=== PATIENT | male | born 1980 | race Caucasian/White ===

== ENCOUNTER → 2022-11-15 | Outpatient (CLI) | payer BC, SELFPAY ==
--- NOTE | 2022-11-15 15:11 | RAD_ITS ---
INDICATION: BACK PAIN EXAMINATION/TECHNIQUE: X-RAY - XR Spine Lumbar Min 4 Views COMPARISON: FINDINGS: The vertebral bodies are normal in height. No definite fracture demonstrated. No subluxation. No paravertebral soft tissue mass identified. RAD/L/S Spine Min 4 Views IMPRESSION: No evidence of fracture or subluxation. Electronically Signed: Anu Garza MD at 7:02 EDT ,
== END | disposition home or self-care (01) ==
LOC: MTRAD 15:08
PROVIDERS: PCP Family Medicine; Referring Provider Family Medicine; Visit Provider Family Medicine
DX: M54.50 Low back pain, unspecified (principal); G89.29 Other chronic pain
CPT/HCPCS: 72110

== ENCOUNTER → 2022-11-17 | Outpatient (CLI) | payer BC, SELFPAY ==
[2022-11-17 10:04] LABS: Absolute Lymphocyte Count 2.86 X10^3/uL (0.83-4.51); Absolute Neutrophil Count 4.3 X10^3/uL (2.0-7.7); Basophil# 0.03 X10^3/uL; Basophil% 0.4 % (0-1); Eosinophil# 0.24 X10^3/uL; Hematocrit 45.8 % (40-54); Hemoglobin 16.2 g/dL (13.0-16.5); Lymphocyte # 2.86 X10^3/ul (0.83-4.51); Lymphocyte % 36.1 % (19-41); Mean Corp Hgb Conc 35.4 g/dL (32-36); Mean Corpuscular Hgb 30.9 pg (27.0-32.0); Mean Corpuscular Volume 87.4 fL (80-94); Mean Platelet Vol. 9.1 fl (6.2-12.0); Monocyte# 0.49 X10^3/uL; Monocyte% 6.2 % (0-10); NRBC Flagged by Analyzer 0 % (0-5); Neutrophil # 4.27 X10^3/uL (2.7-7.7); Neutrophil % 53.9 % (47-70); Platelet Count 340 K/mm3 (150-450); RBC Distribution Width CV 11.7 % (11.6-14.6); RBC Distribution Width SD 37.3 fl (35.1-43.9); Red Blood Count 5.24 M/mm3 (4.6-6.2); White Blood Count 7.9 K/mm3 (4.4-11.0)
[2022-11-17 10:32] LABS: ALB/GLOB Ratio 0.9 RATIO (0.9-2.4); AST(SGOT) 33 U/L (15-37); Alanine Aminotransfer ALT/SGPT 67 U/L (16-61); Albumin, Serum 3.7 g/dL (3.2-5.0); Alkaline Phosphatase 110 U/L (45-117); Anion Gap 9 (5-15); BUN 14 mg/dL (7-18); BUN/Creat Ratio 11.9 RATIO (10-20); Calcium,Total 8.8 mg/dL (8.5-10.1); Chloride 103 mmol/L (98-107); Cholesterol 209 mg/dL (200); Creatinine, Serum 1.18 mg/dL (0.70-1.30); EST Glomerular Filtration Rate 71 mL/min (>60); Est Glom Filt Rate - Afr Amer 86 mL/min (>60); Globulin 4.2 g/dL (2.2-4.2); Glucose 144 mg/dL (74-106); High Density Lipoprotein 48 mg/dL; Potassium 3.8 mmol/L (3.5-5.1); Protein, Total 7.9 g/dL (6.4-8.2); Sodium Level 138 mmol/L (136-145); Triglycerides 317 mg/dL; Very Low Density Lipoprotein 63 mg/dL (5-40)
[2022-11-25 00:07] LABS: Testosterone Free 12.2 pg/mL (6.8-21.5)
== END | disposition home or self-care (01) ==
LOC: MTLAB 08:34
PROVIDERS: PCP Family Medicine; Visit Provider Family Medicine
DX: R53.83 Other fatigue (principal); I10 Essential (primary) hypertension
CPT/HCPCS: 36415; 80053; 80061; 84402; 85025

== ENCOUNTER 2023-05-05 14:11 | Inpatient (IN) | payer BC, SELFPAY ==
[2023-05-05] VITALS (11 sets, daily range): BP systolic 121–173; BP diastolic 71–114; PULSE 75–122; RESP 14–20; TEMP 36.6–37; O2SAT 97–98; BMI 34.7
[2023-05-05 14:36] LABS: Bedside Glucose 355 mg/dL (74-106)
--- NOTE | 2023-05-05 14:45 | ED.RN ---
NO OLD EKG
[2023-05-05 14:49] LABS: Absolute Lymphocyte Count 3.08 X10^3/uL (0.83-4.51); Absolute Neutrophil Count 5.9 X10^3/uL (2.0-7.7); Basophil# 0.05 X10^3/uL; Basophil% 0.5 % (0-1); Eosinophil# 0.05 X10^3/uL; Eosinophils% 0.5 % (0-5); Hematocrit 50.8 % (40-54); Lymphocyte # 3.08 X10^3/ul (0.83-4.51); Lymphocyte % 31.5 % (19-41); Mean Corp Hgb Conc 35.6 g/dL (32-36); Mean Corpuscular Hgb 30.5 pg (27.0-32.0); Mean Corpuscular Volume 85.5 fL (80-94); Mean Platelet Vol. 9.5 fl (6.2-12.0); Monocyte# 0.67 X10^3/uL; Monocyte% 6.9 % (0-10); NRBC Flagged by Analyzer 0 % (0-5); Neutrophil # 5.87 X10^3/uL (2.7-7.7); Neutrophil % 60.1 % (47-70); Platelet Count 370 K/mm3 (150-450); RBC Distribution Width CV 11.8 % (11.6-14.6); RBC Distribution Width SD 36.8 fl (35.1-43.9); Red Blood Count 5.94 M/mm3 (4.6-6.2); White Blood Count 9.8 K/mm3 (4.4-11.0)
--- NOTE | 2023-05-05 14:51 | EX.ED.GENINJ ---
HPI History of Present Illness Chief Complaint: Weakness [facility] Medical History (Updated 05/05/23 @ 18:19 by Tiffanie Walker) Anxiety CPAP (continuous positive airway pressure) dependence Hypertension Sleep apnea Allergy/AdvReac Type Severity Reaction Status Date / Time No Known Allergies Allergy Verified 05/05/23 14:41 Surgical History (Updated 05/05/23 @ 18:19 by Tiffanie Walker) History of appendectomy Social History Smoking Status: Light Smoker (<10/day) EXAM Physical Exam Const Vital Signs: 05/05/23 14:12 05/05/23 14:47 05/05/23 16:34 Temperature 98.6 F Temperature Source Temporal Pulse Rate 122 H 86 Respiratory Rate 20 H 16 Respiratory Effort Normal Respiratory Pattern Normal Blood Pressure 142/114 H 144/76 H Blood Pressure Mean 123 98 Pulse Ox 97 98 Oxygen Delivery Method Room Air Room Air MDM MDM MDM Narrative Medical decision making narrative: HISTORY OF PRESENT ILLNESS: 42-year-old male presents with nausea vomiting weakness and extreme thirst. He denies history of diabetes but states he had the symptoms for the last week. States he cannot shake it. States he has low energy has fatigue. Notes he has been excessively thirsty and urinating more than usual. Notes abdominal discomfort nausea and vomiting. Notes he vomited blood 2 days ago. REVIEW OF SYSTEMS: Pertinent positives: Nausea, vomiting, weakness Pertinent negatives: Focal weakness, chest pain, shortness of breath, leg swelling PHYSICAL EXAM: Nursing triage notes reviewed, Vital signs reviewed Constitutional: please see mdm HENT: MMM Eyes: Pupils equal round and reactive to light, Extraocular muscles intact Neck: No stridor, no JVD, full neck ROM Lungs: Clear to auscultation, No wheezing or rales. No increased work of breathing, no conversational dyspnea, no accessory muscle use, no nasal flaring. No respiratory distress noted Heart: Regular rate and rhythm, No murmurs, No rubs and No gallops, 2+ distal pulses (radial, femoral, posterior tibial) in all extremities Abdomen: Soft, there is no tenderness, rigidity, rebound or guarding, no obvious peritoneal signs, no palpable pulsatile abdominal masses, no auscultated abdominal bruit : No CVAT Extremities: No edema Neuro: No focal neurological deficits, cranial nerves II through XII intact, 5/5 strength in all extremities. Intact sensation to light touch in all extremities, 2+ reflexes bilateral patella tendons. Normal gait. No ataxia. Skin: No rash or lesions noted MEDICAL DECISION MAKING: Chief Complaint: Nausea, vomiting, weakness External records reviewed: No recent ED visits MDM Narrative: Patient was initially tachycardic, tachypneic, otherwise afebrile and nontoxic-appearing I considered the following differential diagnosis: New onset diabetes, dehydration, hyperglycemia causing nausea vomiting, DKA I initially resuscitated the patient 1 L normal saline, Zofran for symptomatic relief. I obtained a broad lab and imaging workup to further elucidate the etiology of the patient's complaints. ALL IMAGES (IF OBTAINED) HAVE BEEN PERSONALLY REVIEWED AND INTERPRETED BY MYSELF. EKG with normal sinus rhythm, left axis deviation, normal intervals, no STEMI VBG with evidence of DKA with metabolic acidosis bicarb 10.4, pH 7.2 High-sensitivity troponin is negative, no evidence of myocardial ischemia Hemoglobin A1c consistent with new onset diabetes Lipase elevated Urine with ketonuria Large acetone consistent with ketoacidosis The synthesis of the patient's history, physical exam, labs images suggest DKA. He started on insulin drip, glucose obstructive, BMP checked every 2 hours. He was admitted to the ICU for further DKA care. Discussed with Dr. Sanches. The patient and/or family, caregivers express understanding. The patient and/or family, caregivers agrees with the plan. Shared decision making: I will have a discussion with the patient and or visitors regarding risk/benefits of further testing or admission. They will be made aware of of the risk/benefits inherent in this decision they will be given the opportunity to voice understanding. Total critical care time today provided was at least 0 minutes. This excludes separately billable procedures. Critical care time (if documented) is secondary to the patient having high probability of clinically significant/life threatening deterioration in the patient's condition which required my urgent intervention. Impression: 1. DKA 2. Hyperglycemia 3. Dehydration 4. Tachycardia Dispo: admit to ICU This note was generated with [employer] dictation software. It may contain incorrect words, spelling, and punctuation that were not noted in review of the chart prior to signing. Lab Data Labs: Laboratory Results - last 24 hr 05/05/23 05/05/23 05/05/23 10:14 14:02 14:16 WBC RBC Hgb Hct MCV MCH MCHC RDW Std Deviation RDW Coeff of [place] Plt Count MPV Immature Gran % (Auto) Neut % (Auto) Lymph % (Auto) [place] % (Auto) Eos % (Auto) Baso % (Auto) Absolute Neuts (auto) Absolute Lymphs (auto) Nucleated RBC % Diff Path Review Sodium Potassium Chloride Carbon Dioxide Anion Gap BUN Creatinine Estim Creat Clear Calc Est GFR (MDRD) Af Amer Est GFR (MDRD) Non-Af BUN/Creatinine Ratio Glucose Hemoglobin A1c Calcium Magnesium Total Bilirubin AST ALT Alkaline Phosphatase Troponin I High Sens Total Protein Albumin Globulin Albumin/Globulin Ratio Lipase Urine Color Yellow Urine Clarity Clear Urine pH 5.0 Ur Specific [place] 1.025 Urine Protein 30 H Urine Glucose (UA) 1000 H Urine Ketones 150 A* Urine Occult Blood 10 H Urine Nitrite Negative Urine Bilirubin Negative Urine Urobilinogen Normal Ur Leukocyte Esterase Negative Urine RBC 0 SEEN Urine WBC 0 SEEN Ur Squamous Epith Cells 0 SEEN Urine Bacteria 0 SEEN Urine Mucus 0 SEEN Urine Osmolality Urine Opiates Screen Urine Methadone Screen Ur Barbiturates Screen Ur Phencyclidine Scrn Ur Amphetamines Screen MDMA (Ecstasy) Screen U Benzodiazepines Scrn Urine Cocaine Screen U Cannabinoids Screen Ur Drug Screen Comment Ethyl Alcohol < 3.0 Acetone Level POC Glucose 355 H 05/05/23 05/05/23 14:33 16:02 WBC 9.8 RBC 5.94 Hgb 18.1 H* Hct 50.8 MCV 85.5 MCH 30.5 MCHC 35.6 RDW Std Deviation 36.8 RDW Coeff of [place] 11.8 Plt Count 370 MPV 9.5 Immature Gran % (Auto) 0.500 Neut % (Auto) 60.1 Lymph % (Auto) 31.5 [place] % (Auto) 6.9 Eos % (Auto) 0.5 Baso % (Auto) 0.5 Absolute Neuts (auto) 5.9 Absolute Lymphs (auto) 3.08 Nucleated RBC % 0 Diff Path Review May foll Sodium 129 L Potassium 3.9 Chloride 99 Carbon Dioxide 13.0 L Anion Gap 17 H BUN 15 Creatinine 1.56 H Estim Creat Clear Calc 70.48 Est GFR (MDRD) Af Amer 62 Est GFR (MDRD) Non-Af 51 L BUN/Creatinine Ratio 9.6 L Glucose 374 H Hemoglobin A1c 8.9 H Calcium 9.0 Magnesium 2.2 Total Bilirubin 1.00 AST 50 H ALT 115 H Alkaline Phosphatase 176 H Troponin I High Sens 7 Total Protein 8.7 H Albumin 3.9 Globulin 4.8 H Albumin/Globulin Ratio 0.8 L Lipase 79 H Urine Color Urine Clarity Urine pH Ur Specific [place] Urine Protein Urine Glucose (UA) Urine Ketones Urine Occult Blood Urine Nitrite Urine Bilirubin Urine Urobilinogen Ur Leukocyte Esterase Urine RBC Urine WBC Ur Squamous Epith Cells Urine Bacteria Urine Mucus Urine Osmolality 775 Urine Opiates Screen NEGATIVE Urine Methadone Screen NEGATIVE Ur Barbiturates Screen NEGATIVE Ur Phencyclidine Scrn NEGATIVE Ur Amphetamines Screen NEGATIVE MDMA (Ecstasy) Screen NEGATIVE U Benzodiazepines Scrn NEGATIVE Urine Cocaine Screen NEGATIVE U Cannabinoids Screen POSITIVE H Ur Drug Screen Comment Ethyl Alcohol Acetone Level LARGE H POC Glucose ABG Data ABG results: ABG 05/05/23 15:01 Specimen Type MINNA Sample Site Not entered VBG pH 7.20 L VBG pO2 63 H VBG HCO3 10 L VBG Total CO2 11 L VBG O2 Sat (Calc) 87 H VBG Base Excess -18 L POC Mix VBG pCO2 Pt Tmp 26.4 L O2 Delivery Device Not entered Crit Call To/Read Back Yes Blood Gas Notified Whom ta Blood Gas Notified Time 15:03:18 Discharge Plan Disposition Disposition: Acute Care Hospital [facility] Discharge Date/Time: 05/05/23 18:22
[2023-05-05 14:55] LABS: Hemoglobin 18.1 g/dL (13.0-16.5)
[2023-05-05 15:06] LABS: Blood Gas Specimen Type VEN; O2 Delivery Device Not entered; SITE Not entered; Time Given 15:03:18; VBG BASE EXCESS -18 mmol/L (-1.0-3.5); VBG Bicarbonate 10 mmol/L (22-26); VBG PO2 63 mmHg (25-40); VBG SO2 87 % (50-70); VBG TCO2 11 mmol/L (23-33); VBG pCO2 26.4 mmHg (41-51)
[2023-05-05] MEDS: Ondansetron 4 MG/2 ML Vial IV (15:16)
[2023-05-05] MEDS: 0.9% Normal Saline (1000mL) 1,000 ML 999 ML IV (15:16)
--- OUTSIDE RECORDS SUMMARY | 2023-05-05 15:18 | XMS RPT_ITS | CCD ---
Author Name Unknown Address [address] [place] [address] Organization [facility] Care Team Providers Care Pediatric Neurologist Name Role Phone UNKNOWN, PROVIDER Unavailable Unavailable SYED, SANJIT S Unavailable Unavailable CHANDURKAR, JOSE ANTONIO Unavailable Unavailable CHANDURKAR, JOSE ANTONIO S Unavailable Unavailable SISCU, HARALAMBIE Unavailable Unavailable SISCU, HARALAMBIE Unavailable Unavailable [facility] M.D. Attending Unavaila ble SYED, LEONCIO DICK Primary Care Unavailable SYED JEAN BAPTISTE, JEFFY Attending Unavaila ble SYED, SARPREET Primary Care Unavailable SYEDRA JEAN BAPTISTE, JEFFY Attending Unavaila ble SYED, SARPREET Primary Care Unavailable SYEDRA JEAN BAPTISTE, JEFFY Attending Unavaila ble SYED, SARPREET Primary Care Unavailable SYEDRA JEAN BAPTISTE, JEFFY Attending Unavaila ble SYED, SARPREET Primary Care Unavailable SYED ITA, JEFFY Attending Unavaila ble SYED, SARPREET Primary Care Unavailable SYED, SARPREET Primary Care Unavailable SYED, SARPREET Primary Care Unavailable SYED, SARPREET Primary Care Unavailable SYEDRA JEAN BAPTISTE, JEFFY Attending Unavaila ble SYED, SARPREET Primary Care Unavailable SYED, SARPREET Primary Care Unavailable SYED, SARPREET Primary Care Unavailable SYED, SARPREET Primary Care Unavailable SYED, SARPREET Primary Care Unavailable SYED, SARPREET Primary Care Unavailable SYED ITA, ROSE MARIEPRECATHERINE Attending Unavaila ble SYED, SARPREET Primary Care Unavailable SYED ITA, ROSE MARIEPRECATHERINE Attending Unavaila ble Problems Active Problems Problem Classification Problem Date Documented Date Episodic/Chronic Alcohol-related disorders (1 source) Alcohol use, unspecified with intoxication, uncomplicated; Translations: [Alcohol use, unspecified with intoxication, uncomplicated] Onset: 10-04-2017 Episodic Anxiety disorders (1 source) Anxiety disorder, unspecified; Translations: [Anxiety disorder, unspecified] Onset: 01-24-2017 Chronic Essential hypertension (1 source) Essential hypertension Onset: 06-07-2017 Nonspecific chest pain (2 sources) Other chest pain; Translations: [Chest pain, unspecified] Onset: 06-07-2017 Episodic Unclassified (2 sources) Other chest pain / R07.89(ICD-9) Onset: 06-07-2017 Unclassified (1 source) Pure hypercholesterolemia , unspecified / E78.00(ICD-9) Onset: 06-07-2017 Unclassified (1 source) Palpitations / R00.2(ICD-9) Onset: 06-07-2017 Unclassified (1 source) Nicotine dependence, unspecified, uncomplicated / F17.200(ICD-9) Onset: 06-07-2017 Unclassified (1 source) Unknown / UNK(Unknown) Onset: 10-04-2017 Past or Other Problems Problem Classification Problem Date Documented Date Episodic/Chronic Unclassified (1 source) Encounter for screening for lipoid disorders; Translations: [Encounter for screening for lipoid disorders] Onset: 01-24-2017 Episodic Unclassified (1 source) Alcohol use, unspecified with intoxication, uncomplicated Onset: 10-04-2017 Results Test Name Value Interpretation Reference Range Facil ity Encounters Encounter Date Encounter Type Care Provider Facility Start: 09-26-2022 ambulatory SARPREET SYED Facilit y:[facility] Start: 09-16-2022 ambulatory SARSYDNEY JEAN BAPTISTE Facility:[facility] Start: 09-15-2022 End: 09-15-2022 ambulatory JEFFY JEAN BAPTISTE Facility:[facility] Start: 09-12-2022 End: 09-12-2022 ambulatory JEFFY JEAN BAPTISTE Facility:[facility] Start: 08-22-2022 End: 08-22-2022 ambulatory JEFFY JEAN BAPTISTE Facility:[facility] Start: 08-16-2022 ambulatory SARPREET SYED Facilit y:[facility] Start: 08-15-2022 ambulatory SARPREET SYED Facilit y:[facility] Start: 07-09-2022 End: 07-09-2022 Emergency department patient visit [facility] [facility] M.D. Facility:[facility] Start: 05-21-2022 End: 02-11-2023 ambulatory JEFFY JEAN BAPTISTE Facility:[facility] Start: 04-20-2022 ambulatory SARPREET SYED Facilit y:[facility] Start: 01-17-2022 ambulatory SARPREET SYED Facilit y:[facility] Start: 01-13-2022 End: 01-14-2022 ambulatory JEFFY LYNCH GUERLINE Facility:[id number] Start: 01-13-2022 ambulatory SARPREET SYED Facilit y:[facility] Start: 12-15-2021 ambulatory SARPREET SYED Facilit y:[facility] Start: 11-15-2021 ambulatory SARPREET SYED Facilit y:[facility] Start: 10-04-2017 End: 10-04-2017 Emergency department patient visit JOSE ANTONIO DASH Facility:[facility] Start: 06-07-2017 Ambulatory PROVIDER UNKNOWN Facili ty:[id number] Start: 01-24-2017 End: 01-24-2017 [facility]: 01-10-2017 End: 01-11-2017 [facility] Procedures Date Procedure Procedure Detail Performing Clinician Start: 07-26-2018 Follow-up visit Payers Date Payer Category Payer Unknown [id number] 2008 Private Health Insurance 2008 Self-pay 2008 Unknown [id number] 1978 Unknown [id number] 2.16.8 [id number] 1978 Unknown [id number] 2.16.8 [id number] 1978 Unknown [id number] 2.16.8 [id number] 1978 Unknown [id number] 2.16.8 [id number] 1978 Unknown [id number] 2.16.8 [id number] 1978 Unknown [id number] 2.16.8 [id number] 1978 Unknown [id number] 2.16.8 [id number] 1978 Unknown [id number] 2.16.8 [id number] 1978 Unknown [id number] 2.16.8 [id number] 1978 Unknown [id number] 2.16.8 [id number] 1978 Unknown [id number] 2.16.8 [id number] 1978 Unknown [id number] 2.16.8 [id number] 1978 Unknown [id number] 2.16.8 [id number] 1978 Unknown [id number] 2.16.8 [id number] 1978 Unknown [id number] 2.16.8 [id number] Private Health Insurance [id number] Progress note 07-09-2022 Note Date & Type Note Facility 07-09-2022 Note HNO ID: [id number] Author: RT Genie(Vincent) Service: Radiology Author Type: Technologist Type: Progress Notes Filed: 07/09/2022 9:10 AM Note Text: Radiology Service Progress Note PATIENT NAME: Benja Guzman DATE OF SERVICE: July 09, 2022 TIME: 9:10 AM PATIENT IDENTITY VERIFICATION COMPLETED USING TWO (2) IDENTIFIERS: Name and Date of confirmed by patient verbally. FALL SCREENING: Has the patient had 2 falls in the last year or 1 fall with injury or currently using an Ambulatory Assistive Device (Walker, Cane, Wheelchair, Crutches, etc.)? Emergency Room Patient: Screened in ED PATIENT GENDER DATA: Male PATIENT RELEVANT IMPLANT DATA REVIEWED: Not Applicable RADIOLOGY DEPARTMENT: General X-ray: Exam(s) Completed: Chest X-Ray PERIPHERAL IV DATA: Not applicable SIGNED BY: RT Genie(R) July 09, 2022 9:10 AM [facility] Summary Purpose Family History No Family History Records FoundNo Family History Records FoundNo Family History Records FoundNo Family History Records FoundNo Family History Records FoundNo Family History Records FoundNo Family History Records FoundNo Family History Records FoundNo Family History Records FoundNo Family History Records Found Advance Directives No Advanced Directives Records FoundNo Advanced Directives Records FoundNo Advanced Directives Records FoundNo Advanced Directives Records FoundNo Advanced Directives Records FoundNo Advanced Directives Records FoundNo Advanced Directives Records FoundNo Advanced Directives Records FoundNo Advanced Directives Records FoundNo Advanced Directives Records Found Additional Source Comments (unrecognized sect ion and content) No Status Records FoundNo Status Records FoundNo Status Records FoundNo Status Records FoundNo Status Records FoundNo Status Records FoundNo Status Records FoundNo Status Records FoundNo Status Records FoundNo Status Records Found INFORMATION SOURCE (unrecogn ized section and content) DATE CREATED AUTHOR AUTHOR'S ORGANIZ ATION 10/04/2017 [facility] DATE CREATED AUTHOR AUTHOR'S ORGANIZ ATION 10/04/2017 [facility] DATE CREATED AUTHOR AUTHOR'S ORGANIZ ATION 11/21/2017 [facility] DATE CREATED AUTHOR AUTHOR'S ORGANIZ ATION 07/27/2018 [employer] DATE CREATED AUTHOR AUTHOR'S ORGANIZ ATION 01/16/2020 [facility] DATE CREATED AUTHOR AUTHOR'S ORGANIZ ATION 2020 [facility] DATE CREATED AUTHOR AUTHOR'S ORGANIZ ATION 07/13/2022 [facility] DATE CREATED AUTHOR AUTHOR'S ORGANIZ ATION 09/26/2022 [facility] DATE CREATED AUTHOR AUTHOR'S ORGANIZ ATION 09/28/2022 [facility] FOR RECORDS PERTAINING TO PATIENTS WHO ARE OR HAVE BEEN ENROLLED IN A CHEMICAL DEPENDENCY/SUBSTANCEABUSE PROGRAM, SOME INFORMATION MAY BE OMITTED. This clinical summary was aggregated from multiple sources. Caution should be exercised in using it in the provision of clinical care. This summary normalizes information from multiple sources, and as a consequence, information in this document may materially change the coding, format and clinical context of patient data. In addition, data may be omitted in some cases. CLINICAL DECISIONS SHOULD BE BASED ON THE PRIMARY CLINICAL RECORDS. [employer] [facility]. provides no warranty or guarantee of the accuracy or completeness of information in this document.
[2023-05-05] MEDS: Lactated Ringers 1,000 ML 999 ML IV (15:35)
[2023-05-05 16:05] LABS: Bacteria 0 SEEN /hpf (None Seen); Mucous, Urine 0 SEEN /hpf (<or=2+); Red Blood Cells-Urine 0 SEEN /hpf (0-5); Squamous Epithelial Cells - UA 0 SEEN /hpf (0-5); White Blood Cells 0 SEEN /hpf (0-5)
[2023-05-05 16:09] LABS: Color, Urine Yellow (Yellow); Glucose, Dipstick 1000 mg/dl (Normal); Leukocyte Esterase-Dipstick Negative /ul (Negative); Nitrite-Dipstick Negative (Negative); Occult Blood-Urine 10 /ul (Negative); Protein-Dipstick 30 mg/dl (Negative); Specific Gravity, Urine 1.025 (1.002-1.030); Urine Bilirubin Dipstick Negative (Negative); Urine Clarity Clear (Clear); Urine Urobilinogen Normal (Normal)
[2023-05-05 16:11] LABS: Hemoglobin A1c 8.9 % (3.8-5.6)
[2023-05-05 16:24] LABS: ALB/GLOB Ratio 0.8 RATIO (0.9-2.4); AST(SGOT) 50 U/L (15-37); Alanine Aminotransfer ALT/SGPT 115 U/L (16-61); Albumin, Serum 3.9 g/dL (3.2-5.0); Alkaline Phosphatase 176 U/L (45-117); Anion Gap 17 (5-15); BUN 15 mg/dL (7-18); BUN/Creat Ratio 9.6 RATIO (10-20); Chloride 99 mmol/L (98-107); Creatinine, Serum 1.56 mg/dL (0.70-1.30); EST Glomerular Filtration Rate 51 mL/min (>60); Est Glom Filt Rate - Afr Amer 62 mL/min (>60); Estimated Creatinine Clearance 70.48 ml/min; Globulin 4.8 g/dL (2.2-4.2); Glucose 374 mg/dL (74-106); Lipase 79 U/L (13-75); Potassium 3.9 mmol/L (3.5-5.1); Protein, Total 8.7 g/dL (6.4-8.2); Sodium Level 129 mmol/L (136-145); Troponin-I HS 7 pg/mL (3.0-78.0)
[2023-05-05 16:32] LABS: Ketone-Dipstick 150 mg/dl (Negative)
--- NOTE | 2023-05-05 16:53 | HP.PCM.HOS_ITS ---
HPI - General General Date of Admission: 05/05/23 Date of Service: 05/05/23 Chief Complaint: Polydipsia, polyuria and weakness HPI Narrative BENJA REYES, is a 42 M who presented to [facility] ED on 05/05/2023 with multiple concerns including polydipsia, polyuria, weakness and nausea/vomiting over the past week. Patient seen at bedside in ED. Laying comfortably in bed, conversing normally, no acute distress. Patient states that he has not been feeling well for about the past week. He began having increased thirst and increased urination, and had nausea/vomiting and decreased appetite. He has steadily become weaker over the past week due to these things. He denies any fevers or chills. Patient is generally very functional at baseline. Patient's PCP is Dr. Shelton and patient notes that he was told at his last ap pointment about 4 months ago that he was prediabetic. Patient was thinking that his symptoms over the past week could be due to diabetes. Patient otherwise has been in good health, takes no medications on a regular basis. Patient does drink alcohol, typically 2-3 drinks per day and does drink both beer and hard liquor. However, states that he has not drink hardly at all in the last week or so. Denies any history of alcohol withdrawal. Patient occasionally uses tobacco and marijuana, has not used either for the last week. Patient denies any other acute concerns this time. [facility] Allergy/AdvReac Type Severity Reaction Status Date / Time No Known Allergies Allergy Verified 05/05/23 14:41 Social History Smoking Status: Never smoker ROS Constitutional Constitutional: Reports fatigue, malaise and weakness; Denies chills or fever(s) Eyes Eyes: Denies change in vision ENT HEENT: Denies nasal congestion, nasal discharge, sinus pressure or sore throat Cardiovascular Cardiovascular: Denies chest pain, dyspnea on exertion, edema, lightheadedness or orthopnea Respiratory/Chest Respiratory/Chest: Denies cough, shortness of breath at rest or wheezing Gastrointestinal Gastrointestinal: Reports nausea and vomiting; Denies abdominal pain, constipation or diarrhea Genitourinary Genitourinary: Reports nocturia and urinary frequency; Denies dysuria Musculoskeletal Musculoskeletal: Denies arthralgias or back pain Neurologic Neurologic: Denies dizziness, focal weakness, headache(s), numbness or paresthesias Endocrine Endocrinology: Reports polydipsia and polyuria Vital Signs Vital Signs Vital Signs: 05/05/23 14:12 05/05/23 14:47 05/05/23 16:34 Temperature 98.6 F Temperature Source Temporal Pulse Rate 122 H 86 Respiratory Rate 20 H 16 Respiratory Effort Normal Respiratory Pattern Normal Blood Pressure 142/114 H 144/76 H Blood Pressure Mean 123 98 Pulse Ox 97 98 Oxygen Delivery Method Room Air Room Air Weight Weight: 103.555 kg Body Mass Index (BMI) 34.7 Physical Exam Const alert, oriented x3 and no apparent distress Constitutional Narrative: Pleasant middle-age male, obese, somewhat flushed in the face, otherwise laying comfortably in bed, conversing normally, no acute distress. General Appearance: cooperative and comfortable HEENT normocephalic, head/scalp atraumatic, hearing grossly normal bilaterally and nasal mucous membranes and turbinates normal HEENT Narrative: Dry mucous membranes. Eyes PERRL, EOMs intact bilaterally and conjunctivae normal Neck full ROM, no lymphadenopathy and supple Lymph Lymphatic: no lymphadenopathy noted Chest inspection of chest normal Resp normal respiratory effort, normal air movement, no use of accessory muscles and clear to auscultation bilaterally Cardio regular rate, regular rhythm, no murmurs and peripheral pulses 2+ throughout GI normal to inspection, nondistended, normoactive bowel sounds, soft to palpation, non-tender and non-distended Back/Spine normal ROM Extremity normal to inspection, full ROM and no pedal edema Skin no rashes or lesions noted Neuro moves all extremities and no focal motor deficits Speech: speech normal Psych mental status grossly normal Results Lab / Micro Data 05/05/23 14:33 05/05/23 14:33 Labs: Laboratory Results - last 24 hr 05/05/23 14:02: Urine Color Yellow, Urine Clarity Clear, Urine pH 5.0, Ur Specific [place] 1.025, Urine Protein 30 H, Urine Glucose (UA) 1000 H, Urine Ketones 150 A*, Urine Occult Blood 10 H, Urine Nitrite Negative, Urine Bilirubin Negative, Urine Urobilinogen Normal, Ur Leukocyte Esterase Negative, Urine RBC 0 SEEN, Urine WBC 0 SEEN, Ur Squamous Epith Cells 0 SEEN, Urine Bacteria 0 SEEN, Urine Mucus 0 SEEN 05/05/23 14:16: POC Glucose 355 H 05/05/23 14:33: WBC 9.8, RBC 5.94, Hgb 18.1 H*, Hct 50.8, MCV 85.5, MCH 30.5, MCHC 35.6, RDW Std Deviation 36.8, RDW Coeff of [place] 11.8, Plt Count 370, MPV 9.5, Immature Gran % (Auto) 0.500, Neut % (Auto) 60.1, Lymph % (Auto) 31.5, [place] % (Auto) 6.9, Eos % (Auto) 0.5, Baso % (Auto) 0.5, Absolute Neuts (auto) 5.9, Absolute Lymphs (auto) 3.08, Nucleated RBC % 0, Diff Path Review August, Sodium 129 L, Potassium 3.9, Chloride 99, Carbon Dioxide 13.0 L, Anion Gap 17 H, BUN 15, Creatinine 1.56 H, Estim Creat Clear Calc 70.48, Est GFR (MDRD) Af Amer 62, Est GFR (MDRD) Non-Af 51 L, BUN/Creatinine Ratio 9.6 L, Glucose 374 H, Hemoglobin A1c 8.9 H, Calcium 9.0, Total Bilirubin 1.00, AST 50 H, ALT 115 H, Alkaline Phosphatase 176 H, Troponin I High Sens 7, Total Protein 8.7 H, Albumin 3.9, Globulin 4.8 H, Albumin/Globulin Ratio 0.8 L, Lipase 79 H, Acetone Level LARGE H Micro: Microbiology 05/05/23 15:25 Mucosa - Nasopharyngeal SARS-CoV-2, Influenza & RSV (PCR) - Final ABG Data ABG results: ABG 05/05/23 15:01 Specimen Type MINNA Sample Site Not entered VBG pH 7.20 L VBG pO2 63 H VBG HCO3 10 L VBG Total CO2 11 L VBG O2 Sat (Calc) 87 H VBG Base Excess -18 L POC Mix VBG pCO2 Pt Tmp 26.4 L O2 Delivery Device Not entered Crit Call To/Read Back Yes Blood Gas Notified Whom ta Blood Gas Notified Time 15:03:18 Assessment & Plan Assessment/Plan (1) DKA (diabetic ketoacidoses): (2) Diabetes mellitus, type 2: (3) Hyponatremia: (4) DEBBIE (acute kidney injury): PLAN: Plan Patient is a 42-year-old male who presented to [facility] ED on 05/05/2023 with diabetes related symptoms. 1. DKA, new onset diabetes mellitus Presented with 1 week history of polyuria, polydipsia, nausea/vomiting, poor p.o. intake and weakness. Labs on admit showed bicarb 13, anion gap 17, glucose 374, urine ketones 150, urine glucose 1000, large acetone level. VBG with pH 7.20, CO2 11. A1c 8.9%. ? Admit under inpatient status to the ICU. DKA protocol ordered. IV fluids, insulin drip, BMP every 4 hours per order set. N.p.o. for now. Nutrition consulted. 2. DEBBIE ? Creatinine 1.56 on admit, baseline creatinine appears to be around 1.1-1.2. Suspect prerenal etiology due to volume losses with DKA. Patient reports adequate urine output. IV fluids and BMP checks as noted above. Urine sodium and urine creatinine ordered to calculate FeNa. 3. Hyponatremia ? Sodium 129 on admit. Chloride low normal at 99. May be secondary to hypovolemic hyponatremia but cannot rule out beer potomania. Serum osmolality, urine osmolality, urine sodium ordered. IV fluids as noted above, monitor BMP. 4. Erythrocytosis ? Hemoglobin 18.1 on admit. Suspect due to hemoconcentration. Follow-up a.m. CBC. 5. Obesity ? BMI 34 on admit. Encouraged lifestyle modifications. Complicates hospital course, care and prognosis. 6. Alcohol use disorder ? Patient reports drinking 2-3 alcoholic drinks per day, both beer and hard liquor. States he has not drank at all in the past week. No history of alcohol withdrawal. Alcohol level ordered. Will start CIWA protocol for now. 7. Elevated BP without diagnosis of hypertension ? BP elevated to 140s to 150s systolic since admit. Monitor. DVT prophylaxis: Lovenox CODE STATUS: Full code, verified Expected disposition: Home, 2 to 3 days Total clinical time spent by myself addressing the patient's medical issues, reviewing all the data, and collaborating with patient's care team: 55 minutes. Charges/Coding Visit Charges Inpatient E&M: 10446 Init Hosp L2
[2023-05-05] MEDS: Insulin Lispro 100 UNIT in 0.9% Normal Saline (100mL Bag) 99 ML 10.3000000000000007 UNIT CONT INF (17:07)
--- OUTSIDE RECORDS SUMMARY | 2023-05-05 17:16 | XMS RPT_ITS | CCD ---
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 Facility:[facility] Start: 05-21-2022 End: 02-11-2023 ambulatory JEFFY JEAN BAPTISTE Facility:[id number] Start: 04-20-2022 ambulatory SARPREET SYED Facilit y:[facility] Start: 01-17-2022 ambulatory SARPREET SYED Facilit y:[facility] Start: 01-13-2022 End: 01-14-2022 ambulatory JEFFY LYNCH GUERLINE Facility:[id number] Start: 01-13-2022 ambulatory SARPREET SYED Facilit y:[facility] Start: 12-15-2021 ambulatory SARPREET SYED Facilit y:[facility] Start: 11-15-2021 ambulatory SARPREET SYED Facilit y:[facility] Start: 10-04-2017 End: 10-04-2017 Emergency department patient visit JOSE ANTONIO DASH Facility:[facility] Start: 06-07-2017 Ambulatory PROVIDER UNKNOWN Facili ty:[id number] Start: 01-24-2017 End: 01-24-2017 [facility] Start: 01-10-2017 End: 01-11-2017 [facility] Procedures Date Procedure Procedure Detail Performing Clinician Start: 07-26-2018 Follow-up visit Payers Date Payer Category Payer Unknown [id number] 2008 Private Health Insurance 2008 Self-pay 2008 Unknown [id number] 1978 Unknown [id number] 2.16.8 [id number] 1978 Unknown [id number] 2.16.8 [id number] 1978 Unknown [id number] 2.16.8 [id number] 1978 Unknown [id number] 2.16.8 [id number] 1978 Unknown [id number] 2.16.8 [id number] 1978 Unknown [id number] 2.16.8 [id number] 1978 Unknown [id number] 2.16.8 [id number] 1978 Unknown [id number] 2.16.8 [id number] 1978 Unknown [id number] 2.16.8 [id number] 1978 Unknown [id number] 2.16.8 [id number] 1978 Unknown [id number] 2.16.8 [id number] 1978 Unknown [id number] 2.16.8 [id number] 1978 Unknown [id number] 2.16.8 [id number] 1978 Unknown [id number] 2.16.8 [id number] 1978 Unknown [id number] 2.16.8 [id number] Private Health Insurance [id number] Progress note 07-09-2022 Note Date & Type Note Facility 07-09-2022 Note HNO ID: [id number] Author: RT Genie(Vincent) Service: Radiology Author Type: [...] RT Genie(R) July 09, 2022 9:10 AM [facility] Summary Purpose Family History No Family History [...] DATE CREATED AUTHOR AUTHOR'S ORGANIZ ATION 10/04/2017 [facility] DATE CREATED AUTHOR AUTHOR'S ORGANIZ ATION 10/04/2017 [facility] DATE CREATED AUTHOR AUTHOR'S ORGANIZ ATION 11/21/2017 [facility] DATE CREATED AUTHOR AUTHOR'S ORGANIZ ATION 07/27/2018 [facility] DATE CREATED AUTHOR AUTHOR'S ORGANIZ ATION 01/16/2020 [facility] DATE CREATED AUTHOR AUTHOR'S ORGANIZ ATION 2020 [facility] DATE CREATED AUTHOR AUTHOR'S ORGANIZ ATION 07/13/2022 [facility] DATE CREATED AUTHOR AUTHOR'S ORGANIZ ATION 09/26/2022 [facility] DATE CREATED AUTHOR AUTHOR'S ORGANIZ ATION 09/28/2022 [facility] FOR RECORDS PERTAINING TO PATIENTS WHO ARE [...] BE BASED ON THE PRIMARY CLINICAL RECORDS. [employer] [facility]. provides no warranty or guarantee of the accuracy or completeness of information in this document.
[2023-05-05 17:27] LABS: Bedside Glucose 276 mg/dL (74-106)
[2023-05-05 17:40] LABS: Magnesium 2.2 mg/dL (1.6-2.6)
[2023-05-05 18:13] LABS: Bedside Glucose 231 mg/dL (74-106)
[2023-05-05] MEDS: Dext 5%-0.45% NS 1,000 ML 150 ML IV (18:30)
[2023-05-05] MEDS: Acetaminophen 325 MG Tablet 650 MG PO (18:30)
[2023-05-05 18:37] LABS: Amphetamine Urine VISTA NEGATIVE (<1000 ng/mL); Barbiturate Urine VISTA NEGATIVE (< 200 ng/mL); Benzodiazepine Urine VISTA NEGATIVE (< 200 ng/mL); Cocaine Urine VISTA NEGATIVE (< 300 ng/mL); Ecstacy Urine VISTA NEGATIVE (< 500 ng/mL); Methadone Urine VISTA NEGATIVE (< 300 ng/mL); PCP Urine VISTA NEGATIVE (< 25 ng/mL); THC Urine VISTA POSITIVE (< 50 ng/mL); Vista UDS pH Range 5
[2023-05-05 18:45] LABS: Alcohol, Blood (Medical)-Serum < 3.0 mg/dL
[2023-05-05 18:47] LABS: Osmolality, Urine 775 mOsm/KG
[2023-05-05 18:47] LABS: Anion Gap 13 (5-15); BUN 12 mg/dL (7-18); BUN/Creat Ratio 9.8 RATIO (10-20); Calcium,Total 8.2 mg/dL (8.5-10.1); Chloride 105 mmol/L (98-107); Creatinine, Serum 1.23 mg/dL (0.70-1.30); EST Glomerular Filtration Rate 68 mL/min (>60); Est Glom Filt Rate - Afr Amer 82 mL/min (>60); Estimated Creatinine Clearance 89.45 ml/min; Glucose 207 mg/dL (74-106); Osmolality, Serum 298 mOsm/KG (275-295); Potassium 3.3 mmol/L (3.5-5.1); Sodium Level 133 mmol/L (136-145)
[2023-05-05 19:11] LABS: Bedside Glucose 170 mg/dL (74-106)
[2023-05-05 20:23] LABS: Bedside Glucose 161 mg/dL (74-106)
[2023-05-05 21:19] LABS: Bedside Glucose 158 mg/dL (74-106)
[2023-05-05 22:24] LABS: Bedside Glucose 110 mg/dL (74-106)
[2023-05-05 22:25] LABS: Anion Gap 9 (5-15); BUN 13 mg/dL (7-18); BUN/Creat Ratio 10.7 RATIO (10-20); Calcium,Total 8.6 mg/dL (8.5-10.1); Chloride 107 mmol/L (98-107); Creatinine, Serum 1.21 mg/dL (0.70-1.30); EST Glomerular Filtration Rate 69 mL/min (>60); Est Glom Filt Rate - Afr Amer 83 mL/min (>60); Estimated Creatinine Clearance 90.93 ml/min; Glucose 116 mg/dL (74-106); Potassium 3.1 mmol/L (3.5-5.1); Sodium Level 134 mmol/L (136-145)
[2023-05-05] MEDS: Potassium Chloride Oral Soln 20 MEQ/15 ML UDC 40 MEQ PO (23:05)
[2023-05-05] MEDS: KCL 20MEQ in D5.45NS 20 MEQ/1,000 ML IV.SOLN. 150 MEQ IV (23:09)
[2023-05-05 23:12] LABS: Magnesium 2.1 mg/dL (1.6-2.6); Phosphorus 1.5 mg/dL (2.5-4.9)
[2023-05-05 23:22] LABS: Bedside Glucose 96 mg/dL (74-106)
[2023-05-06] VITALS (13 sets, daily range): BP systolic 130–169; BP diastolic 71–101; PULSE 67–89; RESP 12–18; TEMP 36.6–36.8; O2SAT 94–99; BMI 35.1
[2023-05-06 00:20] LABS: Bedside Glucose 108 mg/dL (74-106)
[2023-05-06] MEDS: Acetaminophen 325 MG Tablet 650 MG PO (00:55)
[2023-05-06] MEDS: Potassium Chloride Oral Soln 20 MEQ/15 ML UDC 40 MEQ PO (00:56)
[2023-05-06 01:18] LABS: Bedside Glucose 105 mg/dL (74-106)
[2023-05-06 02:20] LABS: Bedside Glucose 116 mg/dL (74-106)
[2023-05-06 02:36] LABS: Anion Gap 7 (5-15); BUN 11 mg/dL (7-18); BUN/Creat Ratio 9.9 RATIO (10-20); Calcium,Total 8.3 mg/dL (8.5-10.1); Chloride 108 mmol/L (98-107); Creatinine, Serum 1.11 mg/dL (0.70-1.30); EST Glomerular Filtration Rate 76 mL/min (>60); Est Glom Filt Rate - Afr Amer 92 mL/min (>60); Estimated Creatinine Clearance 99.12 ml/min; Glucose 120 mg/dL (74-106); Potassium 3.9 mmol/L (3.5-5.1); Sodium Level 134 mmol/L (136-145)
--- NOTE | 2023-05-06 02:48 | PCM.HOSP.N ---
Hospitalist Note AG closed x 3 and bicarb now 19, will transition to ADA diet, add 10 u BID glargine to overlap with d/c insulin drip, add ISS w/ accu checks.
[2023-05-06] MEDS: Insulin Glargine-YFGN 100 UNIT/ML Pen 10 UNIT SC ×3 (03:18→22:40)
[2023-05-06 03:38] LABS: Hematocrit 39.9 % (40-54); Hemoglobin 14.3 g/dL (13.0-16.5); Mean Corp Hgb Conc 35.8 g/dL (32-36); Mean Corpuscular Hgb 30.6 pg (27.0-32.0); Mean Corpuscular Volume 85.3 fL (80-94); Mean Platelet Vol. 9.2 fl (6.2-12.0); Platelet Count 264 K/mm3 (150-450); RBC Distribution Width CV 11.7 % (11.6-14.6); RBC Distribution Width SD 35.8 fl (35.1-43.9); Red Blood Count 4.68 M/mm3 (4.6-6.2); White Blood Count 8.1 K/mm3 (4.4-11.0)
[2023-05-06 03:44] LABS: Bedside Glucose 138 mg/dL (74-106)
[2023-05-06] MEDS: Insulin Lispro 100 UNIT/ML INSULN.PEN SC ×4 (09:01→22:39)
[2023-05-06] MEDS: Enoxaparin 40 MG/0.4 ML Syringe SC (09:06)
[2023-05-06] MEDS: Folic Acid 1 MG Tablet PO (09:07)
[2023-05-06] MEDS: Thiamine Hydrochloride 100 MG Tablet PO (09:07)
[2023-05-06 09:32] LABS: Bedside Glucose 253 mg/dL (74-106)
--- NOTE | 2023-05-06 12:05 | CASEMGMT ---
RN?CM?ELEMENTARY SCHOOL TEACHER'S AIDE?CM?to room to meet with patient for initial transition planning/care coordination?assessment.?RN?CM?introduced self and role at [facility].? Pt voices understanding and consents to?assessment?at this time.? Pt resting in bed in no distress at this time.? Pt is A/O at this time and answers all questions appropriately.?? Care providers, pharmacy, and demographics verified/updated at this time. PCP: Dr Shelton Specialists: none Preferred Pharmacy: [facility] Insurance: [employer] Prescription Benefit:? I believe so Living Will/HPOA:?Pt does not currently have LW/HCPOA. Pt made aware that he can contact [facility] as an out-pt and make appt in the future if he decides he would like to talk with someone about this or would like to utilize [facility] social work for advanced directive completion.??? LNOK: Pt has 4 children. 3 are ages 18 and older. Youngest is 3. Friend, Radha, is only contact listed and pt states does not wish to add anyone else at this time. He states she would know how to contact his children, if needed. Living Arrangements: Lives w/friend, Radha. Independent. Transportation:?Pt states drives self and states no transportation concerns at this time.?Radha will take pt home @ discharge. DME: Pt has a CPAP only and states no need for further DME at this time.?He does not have a glucometer. Pt to be provided with script for glucometer and made aware he can take to a pharmacy of his choice. Questions answered. HHC/SNF: No hx of either. No needs identified. Discussed Pt Link for new DM and pt interested in this. Order placed for consult. Pt wishes to return home and states has no concerns with going home at time of discharge.? Pt voices no further concerns/needs at this time.? Advised pt to ask for?CM?if any further questions/concerns/needs arise.? Voices understanding. PLAN:??Home Pt to discharge home on insulin and to be provided w/script for glucometer @ dc. Green sheet on chart w/instructions to have saldana check completed @ discharge and to ensure Rx's are available at the pharmacy. Nursing to educate pt on DM, insulin administration, and glucometer. Josr GONZALEZN?RN?CM
--- NOTE | 2023-05-06 12:25 | PN_ITS ---
Subjective Subjective Patient seen and examined. He had no complaints. He was admitted with DKA and placed on insulin drip. Anion gap is now closed and he has been switched to subcu Lantus. He has no other complaints. Review of systems otherwise negative. Objective Data Objective Data Vital Signs: Vital Signs Temp Pulse Resp BP Pulse Ox O2 Del Method 98.2 F 80 14 137/84 H 94 Room Air 05/06/23 08:00 05/06/23 08:00 05/06/23 08:00 05/06/23 08:00 05/06/23 08:00 05/06/23 08:00 Oxygen Delivery Method Room Air Weight: 231 lb 0.711 oz Body Mass Index (BMI) 35.1 Intake & Output: Intake and Output for Last 24 Hours 05/04/23 05/05/23 05/06/23 23:59 23:59 23:59 Intake Total 2749.49 / 3109.49 1472.25 / 1472.25 Balance 2749.49 / 3109.49 1472.25 / 1472.25 Lab / Micro Data 05/06/23 01:30 05/06/23 02:00 Labs: Laboratory Results - last 24 hr 05/05/23 10:14: Ethyl Alcohol < 3.0 05/05/23 14:02: Urine Color Yellow, Urine Clarity Clear, Urine pH 5.0, Ur Specific [place] 1.025, Urine Protein 30 H, Urine Glucose (UA) 1000 H, Urine Ketones 150 A*, Urine Occult Blood 10 H, Urine Nitrite Negative, Urine Bilirubin Negative, Urine Urobilinogen Normal, Ur Leukocyte Esterase Negative, Urine RBC 0 SEEN, Urine WBC 0 SEEN, Ur Squamous Epith Cells 0 SEEN, Urine Bacteria 0 SEEN, Urine Mucus 0 SEEN 05/05/23 14:16: POC Glucose 355 H 05/05/23 14:33: WBC 9.8, RBC 5.94, Hgb 18.1 H*, Hct 50.8, MCV 85.5, MCH 30.5, MCHC 35.6, RDW Std Deviation 36.8, RDW Coeff of [place] 11.8, Plt Count 370, MPV 9.5, Immature Gran % (Auto) 0.500, Neut % (Auto) 60.1, Lymph % (Auto) 31.5, [place] % (Auto) 6.9, Eos % (Auto) 0.5, Baso % (Auto) 0.5, Absolute Neuts (auto) 5.9, Absolute Lymphs (auto) 3.08, Nucleated RBC % 0, Diff Path Review August, Sodium 129 L, Potassium 3.9, Chloride 99, Carbon Dioxide 13.0 L, Anion Gap 17 H, BUN 15, Creatinine 1.56 H, Estim Creat Clear Calc 70.48, Est GFR (MDRD) Af Amer 62, Est GFR (MDRD) Non-Af 51 L, BUN/Creatinine Ratio 9.6 L, Glucose 374 H, Hemoglobin A1c 8.9 H, Calcium 9.0, Magnesium 2.2, Total Bilirubin 1.00, AST 50 H , ALT 115 H, Alkaline Phosphatase 176 H, Troponin I High Sens 7, Total Protein 8.7 H, Albumin 3.9, Globulin 4.8 H, Albumin/Globulin Ratio 0.8 L, Lipase 79 H, Acetone Level LARGE H 05/05/23 16:02: Urine Osmolality 775, Urine Opiates Screen NEGATIVE, Urine Methadone Screen NEGATIVE, Ur Barbiturates Screen NEGATIVE, Ur Phencyclidine Scrn NEGATIVE, Ur Amphetamines Screen NEGATIVE, MDMA (Ecstasy) Screen NEGATIVE, U Benzodiazepines Scrn NEGATIVE, Urine Cocaine Screen NEGATIVE, U Cannabinoids Screen POSITIVE H, Ur Drug Screen Comment 05/05/23 17:05: POC Glucose 276 H 05/05/23 17:55: POC Glucose 231 H 05/05/23 18:20: Sodium 133 L, Potassium 3.3 L, Chloride 105, Carbon Dioxide 15.0 L, Anion Gap 13, BUN 12, Creatinine 1.23, Estim Creat Clear Calc 89.45, Est GFR (MDRD) Af Amer 82, Est GFR (MDRD) Non-Af 68, BUN/Creatinine Ratio 9.8 L, Glucose 207 H, Serum Osmolality 298 H, Calcium 8.2 L 05/05/23 18:52: POC Glucose 170 H 05/05/23 20:00: POC Glucose 161 H 05/05/23 21:00: POC Glucose 158 H 05/05/23 22:00: Sodium 134 L, Potassium 3.1 L, Chloride 107, Carbon Dioxide 18.0 L, Anion Gap 9, BUN 13, Creatinine 1.21, Estim Creat Clear Calc 90.93, Est GFR (MDRD) Af Amer 83, Est GFR (MDRD) Non-Af 69, BUN/Creatinine Ratio 10.7, Glucose 116 H, Calcium 8.6, Phosphorus 1.5 L, Magnesium 2.1 05/05/23 22:03: POC Glucose 110 H 05/05/23 23:03: POC Glucose 96 05/06/23 00:00: POC Glucose 108 H 05/06/23 00:59: POC Glucose 105 05/06/23 01:30: WBC 8.1, RBC 4.68, Hgb 14.3, Hct 39.9 L, MCV 85.3, MCH 30.6, MCHC 35.8, RDW Std Deviation 35.8, RDW Coeff of [place] 11.7, Plt Count 264, MPV 9.2 05/06/23 01:58: POC Glucose 116 H 05/06/23 02:00: Sodium 134 L, Potassium 3.9, Chloride 108 H, Carbon Dioxide 19.0 L, Anion Gap 7, BUN 11, Creatinine 1.11, Estim Creat Clear Calc 99.12, Est GFR (MDRD) Af Amer 92, Est GFR (MDRD) Non-Af 76, BUN/Creatinine Ratio 9.9 L, Glucose 120 H, Calcium 8.3 L 05/06/23 03:15: POC Glucose 138 H 05/06/23 08:51: POC Glucose 253 H Micro: Microbiology 05/05/23 15:25 Mucosa - Nasopharyngeal SARS-CoV-2, Influenza & RSV (PCR) - Final ABG Data ABG results: ABG 05/05/23 15:01 Specimen Type MINNA Sample Site Not entered VBG pH 7.20 L VBG pO2 63 H VBG HCO3 10 L VBG Total CO2 11 L VBG O2 Sat (Calc) 87 H VBG Base Excess -18 L POC Mix VBG pCO2 Pt Tmp 26.4 L O2 Delivery Device Not entered Crit Call To/Read Back Yes Blood Gas Notified Whom ta Blood Gas Notified Time 15:03:18 Physical Exam Const alert, oriented x3, no apparent distress and well nourished General Appearance: cooperative and well developed Eyes PERRL and EOMs intact bilaterally Neck no lymphadenopathy, supple and no JVD Lymph Lymphatic: no lymphadenopathy noted and no lymphedema noted Resp normal respiratory effort, normal air movement and clear to auscultation bilaterally Cardio regular rate, regular rhythm, S1 normal heart sound, S2 normal heart sound and no murmurs GI normal to inspection, nondistended, normoactive bowel sounds, soft to palpation, non-tender and non-distended Extremity normal capillary refill, no clubbing, cyanosis or edema and no calf tenderness General Extremity: no tenderness to palpation of joints or extremities Skin General Skin Exam: no breakdown and turgor normal Neuro CN's II-XII intact bilaterally, no focal motor deficits, no sensory deficits noted and deep tendon reflexes 2+ bilaterally Motor Exam: strength 5/5 throughout and general weakness Psych thought process normal, cooperative and affect normal Appearance: appropriate Assessment & Plan Assessment/Plan (1) Diabetes mellitus, type 2: (2) DKA (diabetic ketoacidoses): (3) DEBBIE (acute kidney injury): PLAN: Plan #DKA in the setting of newly diagnosed diabetes mellitus * anion gap has closed and he is now on SQ lantus. * ISS. Accuchecks ACHS * will add on metformin once DEBBIE has resolved. * A1C; 8.9 * #DEBBIE: resolved. Cr is down to 1.11. #Hyponatremia: resolved. sodium is now 134. #Alcohol use disorder: on [facility] protocol. Thiamine and folic acid. Says he has 2-3 alcoholic drinks per day. DVT prophylaxis; lovenox Charges/Coding Visit Charges Inpatient E&M: 93997 Subs Hosp L2
[2023-05-06 14:47] LABS: Bedside Glucose 191 mg/dL (74-106)
[2023-05-06] MEDS: metFORMIN HCl 500 MG Tablet PO (17:18)
[2023-05-06 17:31] LABS: Bedside Glucose 224 mg/dL (74-106)
[2023-05-06] MEDS: MELATONIN 3 MG TABLET PO (22:39)
[2023-05-06 23:11] LABS: Magnesium 2.1 mg/dL (1.6-2.6)
[2023-05-06 23:14] LABS: Bedside Glucose 213 mg/dL (74-106)
[2023-05-07 04:28] VITALS: BP 153/118; PULSE 108; RESP 18; TEMP 36.4; O2SAT 96
[2023-05-07 05:52] LABS: Absolute Lymphocyte Count 2.67 X10^3/uL (0.83-4.51); Absolute Neutrophil Count 3.5 X10^3/uL (2.0-7.7); Basophil# 0.02 X10^3/uL; Basophil% 0.3 % (0-1); Eosinophil# 0.16 X10^3/uL; Eosinophils% 2.3 % (0-5); Hematocrit 44.2 % (40-54); Hemoglobin 15.8 g/dL (13.0-16.5); Lymphocyte # 2.67 X10^3/ul (0.83-4.51); Lymphocyte % 38.3 % (19-41); Mean Corp Hgb Conc 35.7 g/dL (32-36); Mean Corpuscular Hgb 30.4 pg (27.0-32.0); Mean Corpuscular Volume 85.2 fL (80-94); Mean Platelet Vol. 9.4 fl (6.2-12.0); Monocyte# 0.62 X10^3/uL; Monocyte% 8.9 % (0-10); NRBC Flagged by Analyzer 0 % (0-5); Neutrophil # 3.48 X10^3/uL (2.7-7.7); Neutrophil % 49.9 % (47-70); Platelet Count 272 K/mm3 (150-450); RBC Distribution Width CV 11.7 % (11.6-14.6); Red Blood Count 5.19 M/mm3 (4.6-6.2)
[2023-05-07 06:00] VITALS: BMI 35.4
[2023-05-07 06:10] LABS: Anion Gap 10 (5-15); BUN 11 mg/dL (7-18); BUN/Creat Ratio 10.7 RATIO (10-20); Calcium,Total 8.9 mg/dL (8.5-10.1); Chloride 103 mmol/L (98-107); Creatinine, Serum 1.03 mg/dL (0.70-1.30); EST Glomerular Filtration Rate 83 mL/min (>60); Est Glom Filt Rate - Afr Amer 101 mL/min (>60); Estimated Creatinine Clearance 107.39 ml/min; Glucose 216 mg/dL (74-106); Potassium 2.9 mmol/L (3.5-5.1); Sodium Level 132 mmol/L (136-145)
[2023-05-07] MEDS: Insulin Lispro 100 UNIT/ML INSULN.PEN SC ×2 (06:27→12:12)
[2023-05-07 06:32] LABS: Magnesium 2.2 mg/dL (1.6-2.6); Phosphorus 2.9 mg/dL (2.5-4.9)
[2023-05-07 06:56] LABS: Bedside Glucose 217 mg/dL (74-106)
[2023-05-07 07:58] VITALS: O2SAT 98
[2023-05-07] MEDS: Potassium Chloride Oral Tablet 20 MEQ 60 MEQ PO (08:00)
[2023-05-07] MEDS: metFORMIN HCl 500 MG Tablet PO (08:00)
[2023-05-07] MEDS: Folic Acid 1 MG Tablet PO (08:00)
[2023-05-07] MEDS: Thiamine Hydrochloride 100 MG Tablet PO (08:00)
[2023-05-07] MEDS: Potassium Chloride 10mEq/100mL 10 MEQ/100 ML IV.SOLN. 100 MEQ IV BOLUS ×4 (08:06→11:43)
[2023-05-07] MEDS: 0.9% Saline Lock 10 ML Syringe IV (08:08)
[2023-05-07 08:15] VITALS: BP 107/85; PULSE 51; RESP 16; TEMP 35.8; O2SAT 99
[2023-05-07] MEDS: Insulin Glargine-YFGN 100 UNIT/ML Pen 10 UNIT SC (09:38)
[2023-05-07 09:41] VITALS: BP 166/99; PULSE 65; RESP 16; TEMP 36; O2SAT 97
[2023-05-07] MEDS: Enoxaparin 40 MG/0.4 ML Syringe SC (10:51)
[2023-05-07 10:59] LABS: Bedside Glucose 237 mg/dL (74-106)
[2023-05-07 12:11] LABS: Bedside Glucose 207 mg/dL (74-106)
--- NOTE | 2023-05-07 12:33 | DS.PCM_ITS ---
Providers Date of Admission: 05/05/23 Date of Discharge: 05/07/23 Primary Care Physician: Yumi Shelton MD Reason For Visit: DKA Diagnosis Discharge Diagnosis (1) Diabetes mellitus, type 2: Status: Acute Code(s): E11.9 - Type 2 diabetes mellitus without complications (2) DKA (diabetic ketoacidoses): Status: Acute Code(s): E11.10 - Type 2 diabetes mellitus with ketoacidosis without coma (3) DEBBIE (acute kidney injury): Status: Acute Code(s): N17.9 - Acute kidney failure, unspecified Plan #DKA in the setting of newly diagnosed diabetes mellitus * anion gap has closed and he is now on SQ lantus. * ISS. Accuchecks ACHS * will add on metformin once DEBBIE has resolved. * A1C; 8.9 * #DEBBIE: resolved. Cr is down to 1.11. #Hyponatremia: resolved. sodium is now 134. #Alcohol use disorder: on [facility] protocol. Thiamine and folic acid. Says he has 2-3 alcoholic drinks per day. DVT prophylaxis; lovenox Medications at Discharge Home Medications insulin glargine-yfgn 100 unit/mL (3 mL) subcutaneous pen 15 unit (0.15 mL) subcut DAILY #15 mL 05/07/23 lisinopril 20 mg tablet 20 mg PO DAILY #30 tabs 05/07/23 metformin 500 mg tablet 500 mg PO BIDCM #60 tabs 05/07/23 Hospital Course Operations None Procedures None Summary of Care Provided Minutes Spent on Discharge: 45 Hospital Course: Patient is a 42-year-old male with a past medical history as outlined was admitted through the ED on 05/05/2023 with a complaint of polydipsia, polyuria, weakness and nausea and vomiting which have been going on for about a week prior to admission. He did have a family history of diabetes melitis and so he was concerned that his symptoms may be due to diabetes. He also had a history of drinking alcohol and said he drank about 2-3 beers daily. On admission his blood sugars were elevated and anion gap was also elevated with bicarb being low. He was therefore admitted and managed for DKA in the setting of diabetes mellitus. He was admitted to the ICU and started on insulin drip. His anion gap subsequently closed. He was also high pool kalemia and hyponatremic which was thought to be due to the high pair glycemia. Blood sugars trended down and he felt much better. He was switched to subcu Lantus. Hospital course was complicated by persistent hypokalemia which was aggressively replaced. He was discharged on 05/07/2023. He is follow-up with his primary care doctor and was referred to endocrinology. Blood pressure was running high so he was started on p.o. lisinopril 20 mg daily. He was discharged on subcu Lantus 15 units daily as well as p.o. metformin 500 mg twice daily. He is to follow-up with his primary care doctor as stated above. Patient seen and examined prior to discharge. He had no complaints and had an uneventful night. Review of systems otherwise negative. Labs and vitals revie mon. Home medication reviewed and reconciled. Physical Exam Const alert, oriented x3, no apparent distress and well nourished General Appearance: cooperative, comfortable and well developed HEENT normocephalic, head/scalp atraumatic, hearing grossly normal bilaterally and nasal mucous membranes and turbinates normal Mouth: oral and palatal mucosa normal Eyes PERRL, EOMs intact bilaterally and conjunctivae normal Neck full ROM, no lymphadenopathy, supple and no JVD Lymph Lymphatic: no lymphadenopathy noted and no lymphedema noted Chest inspection of chest normal Resp normal respiratory effort, normal air movement, no use of accessory muscles and clear to auscultation bilaterally Cardio regular rate, regular rhythm, S1 normal heart sound, S2 normal heart sound, no murmurs and peripheral pulses 2+ throughout GI normal to inspection, nondistended, normoactive bowel sounds, soft to palpation, non-tender and non-distended Back/Spine normal ROM Extremity normal to inspection, full ROM, normal capillary refill, no clubbing, cyanosis or edema, no calf tenderness and no pedal edema General Extremity: no tenderness to palpation of joints or extremities Skin no rashes or lesions noted General Skin Exam: no breakdown and turgor normal Neuro CN's II-XII intact bilaterally, moves all extremities, no focal motor deficits, no sensory deficits noted and deep tendon reflexes 2+ bilaterally Speech: speech normal Motor Exam: strength 5/5 throughout and general weakness Psych mental status grossly normal, thought process normal, cooperative and affect normal Appearance: appropriate Weight / BMI Weight Weight: 232 lb 12.93 oz Body Mass Index (BMI) 35.4 ABG / Lab / Microbiology Data 05/07/23 05:05 05/07/23 05:05 Laboratory: Laboratory Results - last 24 hr 05/06/23 12:29: POC Glucose 191 H 05/06/23 17:09: POC Glucose 224 H 05/06/23 22:30: Phosphorus 2.0 L, Magnesium 2.1 05/06/23 22:34: POC Glucose 213 H 05/07/23 05:05: WBC 7.0, RBC 5.19, Hgb 15.8, Hct 44.2, MCV 85.2, MCH 30.4, MCHC 35.7, RDW Std Deviation 36.0, RDW Coeff of [place] 11.7, Plt Count 272, MPV 9.4, Immature Gran % (Auto) 0.300, Neut % (Auto) 49.9, Lymph % (Auto) 38.3, Bates % (Auto) 8.9, Eos % (Auto) 2.3, Baso % (Auto) 0.3, Absolute Neuts (auto) 3.5, Absolute Lymphs (auto) 2.67, Nucleated RBC % 0, Sodium 132 L, Potassium 2.9 L, Chloride 103, Carbon Dioxide 19.0 L, Anion Gap 10, BUN 11, Creatinine 1.03, Estim Creat Clear Calc 107.39, Est GFR (MDRD) Af Amer 101, Est GFR (MDRD) Non-Af 83, BUN/Creatinine Ratio 10.7, Glucose 216 H, Calcium 8.9, Phosphorus 2.9, Magnesium 2.2 05/07/23 06:26: POC Glucose 217 H 05/07/23 09:37: POC Glucose 237 H 05/07/23 11:47: POC Glucose 207 H Microbiology: Microbiology 05/05/23 15:25 Mucosa - Nasopharyngeal SARS-CoV-2, Influenza & RSV (PCR) - Final D/C Instructions Discharge Diet: 1800 Calorie Control Diet Discharge Activity: Return to Normal Activity Weight Bearing Status: Weight bearing as tolerated Call your doctor if you observe: Fever of 101 or Higher, Shortness of breath, Dizziness and Chest pain Meaningful Use Info Meaningful Use Diagnoses (Choose all that apply): None applicable Discharge Plan Admission Admit Date/Time: 05/05/23 16:56 Primary Reason for Your Visit: DKA in a newly diagnosed diabetic Attending Provider: Adrienne Finney Primary Care Provider: Yumi Shelton Consulting Providers: Josue Sanches Instructions Patient Instructions: Diabetes A1c Test Ch Discharge Orders/Prescriptions Prescriptions: New insulin glargine-yfgn 100 unit/mL (3 mL) Insulin Pen 15 unit subcut DAILY Qty: 15 1RF metformin 500 mg Tablet 500 mg PO BIDCM Qty: 60 1RF lisinopril 20 mg tablet 20 mg PO DAILY Qty: 30 1RF Referrals / Follow Up: Yumi Shelton MD [Primary Care Provider] - Within 2 Weeks Allen Lucas MD [Med Staff - Courtesy Staff] - Within 1 Month (see to establish care for type 2 diabetes mellitus) Disposition Disposition (needs filled in before D/C Order can be placed): Home, Self Care Charges/Coding Visit Charges Inpatient E&M: 41658 Disch Hosp >30min
--- NOTE | 2023-05-07 12:33 | DCINST_ITS ---
Discharge Instructions Diet Discharge Diet: 1800 Calorie Control Diet Activity Discharge Activity: Return to Normal Activity Weight Bearing Status: Weight bearing as tolerated Dressing / Incision Call your doctor if you observe: Fever of 101 or Higher, Shortness of breath, Dizziness and Chest pain Follow Up Care Test Results: Test results from this visit will be discussed in further detail at your follow- up appointment, if applicable. Discharge Plan Admission Admit Date/Time: 05/05/23 16:56 Primary Reason for Your Visit: DKA in a newly diagnosed diabetic Attending Provider: Adrienne Finney Primary Care Provider: Yumi Shelton Consulting Providers: Josue Sanches Instructions Patient Instructions: Diabetes A1c Test Ch Discharge Orders/Prescriptions Prescriptions: New insulin glargine-yfgn 100 unit/mL (3 mL) Insulin Pen 15 unit subcut DAILY Qty: 15 1RF metformin 500 mg Tablet 500 mg PO BIDCM Qty: 60 1RF Referrals / Follow Up: Yumi Shelton MD [Primary Care Provider] - Within 2 Weeks Allen Lucas MD [Med Staff - Courtesy Staff] - Within 1 Month (see to establish care for type 2 diabetes mellitus) Disposition Disposition (needs filled in before D/C Order can be placed): Home, Self Care
[2023-05-07 13:58] LABS: Anion Gap 9 (5-15); BUN 12 mg/dL (7-18); BUN/Creat Ratio 12.1 RATIO (10-20); Chloride 105 mmol/L (98-107); Creatinine, Serum 0.99 mg/dL (0.70-1.30); EST Glomerular Filtration Rate 87 mL/min (>60); Est Glom Filt Rate - Afr Amer 105 mL/min (>60); Estimated Creatinine Clearance 112.16 ml/min; Glucose 223 mg/dL (74-106); Potassium 4.1 mmol/L (3.5-5.1); Sodium Level 134 mmol/L (136-145)
--- NOTE | 2023-05-07 14:22 | NURSING ---
Chapman check on medications through [facility] pharmacy. Glargine is NF, had MD change to Levemir which is formulary for patient's insurance. Cost of Lisinipril $3.48, metormin $3.00 and Levemir 135.90 for 90day supply. Informed patient. Voices no concerns.
[2023-05-07 14:45] VITALS: BP 147/93; PULSE 83; RESP 16; TEMP 35.9; O2SAT 97
--- NOTE | 2023-05-08 08:54 | CCN.REFER ---
PATIENT DECLINES PATIENT LINK DEVICE.
[2023-05-08 12:55] LABS: Pathologist Review Reviewed
== END 2023-05-07 15:03 | disposition home or self-care (01) | DRG 638 ==
LOC: ED 15:01 → ICU 17:13 → PCU 05-06 14:04
PROVIDERS: Family Medicine; Admitting Provider Hospitalist; Emergency Provider Emergency Medicine; PCP Family Medicine; Visit Provider Student in an Organized Health Care Education/Training Program
DX: E11.10 Type 2 diabetes mellitus with ketoacidosis without coma (principal); N17.9 Acute kidney failure, unspecified; E87.1 Hypo-osmolality and hyponatremia; E11.65 Type 2 diabetes mellitus with hyperglycemia; I10 Essential (primary) hypertension; F10.10 Alcohol abuse, uncomplicated; E86.0 Dehydration; E87.6 Hypokalemia; F17.200 Nicotine dependence, unspecified, uncomplicated; E66.9 Obesity, unspecified; Z68.34 Body mass index [BMI] 34.0-34.9, adult; R03.0 Elevated blood-pressure reading, without diagnosis of hypertension; Y90.9 Presence of alcohol in blood, level not specified
CPT/HCPCS: 36415; 80048; 80053; 80307; 80320; 81001; 82009; 82803; 82962; 83036; 83690; 83735; 83930; 83935; 84100; 84484; 85025; 85027; 87631; 93005; 97802; 99285; J7030; A4216; G0480; J2405; J7799

== ENCOUNTER → 2023-05-09 | Outpatient (CLI) | payer BC, SELFPAY ==
--- OUTSIDE RECORDS SUMMARY | 2023-05-09 16:55 | XMS RPT_ITS | CCD ---
Author Name Unknown Address [address] [place] [address] Organization [facility] Care Team Providers Care Beater Room Helper Name Role Phone UNKNOWN, PROVIDER Unavailable Unavailable [...] Emergency department patient visit [facility] M.D. Facility:[facility] Start: 05-21-2022 End: 02-11-2023 ambulatory JEFFY JEAN BAPTISTE Facility:[id number] Start: 04-20-2022 ambulatory SARPREET SYED Facilit y:[facility] Start: 01-17-2022 ambulatory SARPREET SYED Facilit y:[facility] Start: 01-13-2022 End: 01-14-2022 ambulatory JEFFY LYNCH GUERLINE Facility:[id number] Start: 01-13-2022 ambulatory SARPREET SYED Facilit y:[facility] Start: 12-15-2021 ambulatory SARPREET SYED Facilit y:[facility] Start: 11-15-2021 ambulatory SARPREET SYED Facilit y:[facility] Start: 10-04-2017 End: 10-04-2017 Emergency department patient visit JOSE ANTONIO DASH Facility:[facility] Start: 06-07-2017 Ambulatory PROVIDER UNKNOWN Facili ty:[id number] Start: 01-24-2017 End: 01-24-2017 [facility]: 01-10-2017 End: 01-11-2017 [facility] Procedures Date Procedure Procedure Detail Performing Clinician Start: 07-26-2018 Follow-up visit Payers Date Payer Category Payer Unknown [id number] 2008 Private Health Insurance 2008 Self-pay 2008 Unknown [id number] 1978 Unknown [id number] 2.16.8 [id number] 1978 Unknown [id number] 2.16.8 [id number] 1978 Unknown [id number] 2.16.8 40.1.961988.3.579.2.159 1978 Unknown [id number] 2.16.8 40.1.952086.3.579.2.159 1978 Unknown [id number] 2.16.8 40.1.146284.3.579.2.159 1978 Unknown [id number] 2.16.8 40.1.387328.3.579.2.159 1978 Unknown [id number] 2.16.8 40.1.090734.3.579.2.159 1978 Unknown [id number] 2.16.8 40.1.742662.3.579.2.159 1978 Unknown [id number] 2.16.8 40.1.793243.3.579.2.159 1978 Unknown [id number] 2.16.8 40.1.777555.3.579.2.159 1978 Unknown [id number] 2.16.8 40.1.294589.3.579.2.159 1978 Unknown [id number] 2.16.8 40.1.988934.3.579.2.159 1978 Unknown [id number] 2.16.8 40.1.764027.3.579.2.159 1978 Unknown [id number] 2.16.8 40.1.076212.3.579.2.159 1978 Unknown [id number] 2.16.8 [id number] Private Health Insurance [id number] Progress note 07-09-2022 Note Date & Type Note Facility 07-09-2022 Note HNO ID: [id number] Author: RT Genie(Vincent) Service: Radiology Author Type: [...] RT Genie(R) July 09, 2022 9:10 AM [facility] Summary Purpose Family History No Family History [...] DATE CREATED AUTHOR AUTHOR'S ORGANIZ ATION 10/04/2017 [facility] DATE CREATED AUTHOR AUTHOR'S ORGANIZ ATION 10/04/2017 [facility] DATE CREATED AUTHOR AUTHOR'S ORGANIZ ATION 11/21/2017 [facility] DATE CREATED AUTHOR AUTHOR'S ORGANIZ ATION 07/27/2018 [facility] DATE CREATED AUTHOR AUTHOR'S ORGANIZ ATION 01/16/2020 [facility] DATE CREATED AUTHOR AUTHOR'S ORGANIZ ATION 2020 [facility] DATE CREATED AUTHOR AUTHOR'S ORGANIZ ATION 07/13/2022 [facility] DATE CREATED AUTHOR AUTHOR'S ORGANIZ ATION 09/26/2022 [facility] DATE CREATED AUTHOR AUTHOR'S ORGANIZ ATION 09/28/2022 [facility] FOR RECORDS PERTAINING TO PATIENTS WHO ARE [...] BE BASED ON THE PRIMARY CLINICAL RECORDS. [employer] [facility]. provides no warranty or guarantee of the accuracy or completeness of information in this document.
[2023-05-09 18:19] LABS: Anion Gap 11 (5-15); BUN 15 mg/dL (7-18); BUN/Creat Ratio 14.6 RATIO (10-20); Calcium,Total 9.3 mg/dL (8.5-10.1); Chloride 95 mmol/L (98-107); Creatinine, Serum 1.03 mg/dL (0.70-1.30); EST Glomerular Filtration Rate 83 mL/min (>60); Est Glom Filt Rate - Afr Amer 101 mL/min (>60); Glucose 224 mg/dL (74-106); Potassium 3.8 mmol/L (3.5-5.1); Sodium Level 130 mmol/L (136-145)
== END | disposition home or self-care (01) ==
LOC: MTLAB 16:15
PROVIDERS: PCP Family Medicine; Referring Provider Family Medicine; Visit Provider Family Medicine
DX: E87.6 Hypokalemia (principal)
CPT/HCPCS: 36415; 80048